=== PATIENT | female | born 1970 | race Caucasian/White ===

== ENCOUNTER 2022-10-26 11:26 | Emergency (ER) | payer MEDICAID ==
[~2022-10-26] VITALS: Ht 167.6 cm; Wt 62.8 kg
[2022-10-26] MEDS ORDERED: HYDROmorphone HCL 2 MG/ML VL/or syr IM ONE (13:45)
[2022-10-26] MEDS ORDERED: PERCOT PO (14:42)
[2022-10-26] MEDS ORDERED: CARI250T PO (14:44)
[2022-10-26 14:53] VITALS: BP 112/68
== END 2022-10-26 14:53 | disposition home or self-care (01) ==
LOC: ER 11:26
DX: M62.838 Other muscle spasm (principal); M54.12 Radiculopathy, cervical region; F17.210 Nicotine dependence, cigarettes, uncomplicated; F10.90 Alcohol use, unspecified, uncomplicated
CPT/HCPCS: 96372; 99283; J1170

== ENCOUNTER → 2023-11-30 | Outpatient (CLI) | payer MEDICAID ==
[~2023-11-30] MED LIST: CARI250T PO; PERCOT PO
== END | disposition home or self-care (01) ==
LOC: Rad HDHVI 08:54
PROVIDERS: ATTEND Internal Medicine Cardiovascular Disease
DX: I34.1 Nonrheumatic mitral (valve) prolapse (principal); I10 Essential (primary) hypertension
CPT/HCPCS: 93306

== ENCOUNTER → 2024-03-28 | Outpatient (CLI) | payer MEDICAID ==
[~2024-03-28] MED LIST changes: +ASPI1TAB20 PO; +CYAN1SUB5 SL; +CYCL-611 PO; +DICL50TA2 PO; +MULT-1018 PO; +POM PO
[2024-03-28 10:00] VITALS: BP 111/67; PULSE 74; RESP 16; O2SAT 99
[2024-03-28 10:14] VITALS: BP 103/64; PULSE 76; RESP 16; O2SAT 99
== END | disposition home or self-care (01) ==
LOC: Rad HDHVI 09:48
PROVIDERS: ATTEND Internal Medicine Cardiovascular Disease
DX: Z01.818 Encounter for other preprocedural examination (principal); I25.10 Atherosclerotic heart disease of native coronary artery without angina pectoris
CPT/HCPCS: 71046; 93005; G0463